=== PATIENT | female | born 1930 | race Caucasian/White ===

== ENCOUNTER → 2016-05-12 | Outpatient (CLI) | payer OTHER, MEDICARE ==
[~2016-05-12] VITALS: Ht 147.3 cm; Wt 60.5 kg
[~2016-05-12] MED LIST: ACIDOPHILUS1 EAC3 PO; ACYCLOVIR 400400 M1 PO; AMITRIPTYLINE H25 M2 PO; ARICEPT10 M1 PO; CALCIUM 600 +1 EAC1 PO; CARVEDILOL12.5 MG PO; CENTRUM SILVER1 EAC4 PO; CO Q-1010 MG PO; COMPAZINE5 MG PO; CYMBALTA20 MG PO; CYTARABINE IV; GLIPIZIDE 10 MG10 MG PO; GLIPIZIDE ER5 MG PO; GLUCOTROL5 MG PO; HYDROCODON-ACE1 EAC8 PO; HYDROCODONE-APA1 TA1 PO; JAKAFI15 MG PO; JAKAFI5 MG PO; LASIX 20 MG TAB20 MG PO; LEVAQUIN 500 M500 M1 PO; LEVSIN-SL0.125 MG SL; LIDODERM 5%1 PATCH TD; LIDODERM 5%1 PATCH TOP; LIPITOR10 MG PO; LISINOPRIL10 MG PO; LISINOPRIL2.5 MG PO; LISINOPRIL5 MG PO; LORTAB 10-3251 EACH PO; LYRICA 75 MG CA75 MG PO; MAGOX 400400 MG PO; MIRALAX17 GM PO; MIRALAX255 GM PO; MOBIC7.5 MG PO; MULTIVITAMINS PO; NORCO 10-325 T1 EACH PO; NORCO 5-325 TA1 EACH PO; NORVASC10 MG PO; OMEGA-3 FISH O1 EAC3; OMEGA-3 FISH O1 EAC5 PO; ONDANSETRON HCL4 M2 PO; PERCOCET 5-3251 EACH PO; PERCOCET PO; PERIDEX 0.12%473 M1 SP; PREDNISONE 20 M20 M1 PO; TIMOLOL GL0.5 %/5 M1 OPHTHALMIC; TIZANIDINE HCL 22 M1 PO; TURMERIC500 MG PO; VIDAZA100 MG IJ; VITAMIN D-32000 UNIT PO; VITAMIN D1000 UNI1 PO; ZINC LOZENGE25 MG PO; ZINC50 M1 PO; [UNRECOGNIZED DRUG - CODE] SC; [UNRECOGNIZED DRUG - OTHER]
--- NOTE | ~2016-05-12 | HPC ---
[address] [address] PAIN MANAGEMENT CONSULTATION Name: ONELIA BOWSER Room #: REG [facility]..#: [id number] Admission: 05/12/16 Attend Phys: Abdiel Gasca DO Discharge: Date of : 04/01/28 Report #: [id number] THIS REPORT FOR: //name// CC: Tawanda Gasca The patient is an 86-year-old female previously seen in pain clinic 04/14/2016, given a left L3-L4 transforaminal epidural injection at that time. She returns to pain clinic today noting that the injection, approximately 30 days ago, afforded very good incremental relief of pain, it is beginning to recur. She specifically notes 100% relief for about 3 weeks and then gradual return with pain, currently rated at 4 on a 0-10 visual analog scale, intermittent, aching, stabbing, and exacerbated with walking and standing. Pain started to interfere with function. She has been taking hydrocodone 10/ from Dr. Sykes. She notes with recurrence of pain, she started to use medication a little more aggressively. PHYSICAL EXAMINATION: Shows an 86-year-old female, BMI is 27.9 kilograms per meter squared. Vital signs stable as noted in the EMR. Rises from chair using armrest, moderately antalgic gait, positive straight leg raise on the right with ongoing lumbar and radicular symptoms. ASSESSMENT: Symptomatic lumbar radiculopathy, sacroiliac joint dysfunction, lumbar radiculopathy secondary to spinal stenosis. RECOMMENDATIONS: 1. Repeat left L3-L4 transforaminal epidural injection today. 2. Follow simply as needed. If patient continues to have some loss of efficacy with the hydrocodone 10/325, may consider rotation to Percocet 7.5/325; however, we will defer to Dr. Sykes, her current treating physician. ASSESSMENT: Symptomatic lumbar radiculopathy secondary to spinal stenosis. PROCEDURE NOTE: Left L3-L4 transforaminal epidural injection under fluoroscopy. PROCEDURE: Lumbar epidural steroid injection. DESCRIPTION OF PROCEDURE: After both written and informed consent to include risk of spinal cord damage, increased pain, weakness and dural puncture, the patient was taken to the fluoroscopy suite, placed in the prone position. After sterile prep and drape, a skin wheal with lidocaine was raised. A 22-gauge epidural Tuohy needle was inserted in the midline at L3-L4 with good loss to resistance. Negative aspiration for cerebrospinal fluid or blood was noted. Then 1 mL of Omnipaque under biplanar fluoroscopy showed good spread within the epidural space. This was followed with 80 mg of triamcinolone plus 1 mL of 1.5% preservative-free Xylocaine, 0.5 mL Xylocaine was then injected to flush the [address] [address] PAIN MANAGEMENT CONSULTATION Name: ONELIA BOWSER Room #: REG [facility]#: [id number] Admission: 05/12/16 Attend Phys: Abdiel Gasca DO Discharge: Date of : 04/01/28 Report #: [id number] needle; it was removed. The patient was monitored for an appropriate period of time and discharged in good and stable condition. <ELECTRONICALLY SIGNED> By: Abdiel Gasca DO 05/18/16 1031 [id number] 1827 Abdiel Gasca DO /nt
[2016-05-12 11:07] VITALS: BP 141/54
== END | disposition home or self-care (01) ==
LOC: PAIN 07:11 → EDBD 07:11 → PAIN 08:56
DX: M48.06 Spinal stenosis, lumbar region (principal); M53.3 Sacrococcygeal disorders, not elsewhere classified

== ENCOUNTER → 2016-06-03 | Outpatient (CLI) | payer OTHER, MEDICARE ==
[~2016-06-03] VITALS: Ht 147.3 cm; Wt 58.5 kg
--- NOTE | ~2016-06-03 | P ---
[facility] [address] PROCEDURE REPORT Name: ONELIA BOWSER [id number] Admission: 06/03/16 Attend Phys: Tan Ibarra Discharge: Date of : 04/01/28 Report #: [id number] THIS REPORT FOR: //name// CC: Tan Maya MD DATE OF SERVICE: 06/03/2016 PROCEDURE PERFORMED: Upper endoscopy with esophageal dilation. HISTORY OF PRESENT ILLNESS: The patient is an 86-year-old female with dysphagia for several months. She describes it to both liquids and solids. No previous history of upper endoscopy or dilation. She denies any significant heartburn. Her weight has been stable. She does have a history of leukemia and thrombocytopenia. Plan is for EGD with dilation. DESCRIPTION OF PROCEDURE: The risks and benefits of the procedure were explained to the patient, those risks including but not limited to bleeding, perforation and the risk of sedation. She understood these risks and gave informed consent. Sedation was given using propofol per anesthesia. Next, using a standard Yasound upper endoscope, the scope was placed in the patient's mouth and advanced under direct vision through the esophagus, stomach and into the second portion of the duodenum. The larynx was normal in appearance. The esophagus was normal throughout. No stricture or narrowing was noted. The GE junction was normal. No evidence of esophagitis. Overall, the gastric mucosa was normal. The pylorus was normal and patent. The duodenal bulb, first and second portion, were all normal. The scope was then brought back up into the patient's stomach and a Savary guidewire was inserted, leaving the guidewire in place as the scope was then withdrawn. Next, a 51-Turkish Savary dilation of the esophagus was then performed without difficulty. The wire and dilator removed. The scope was reintroduced into the patient's stomach. There was no evidence of mucosal tear after dilation. The scope was then withdrawn and the procedure terminated. The patient tolerated the procedure well. IMPRESSION: 1. Normal upper endoscopy. 2. Status post esophageal dilation. RECOMMENDATIONS: Observe the patient post-procedure. If the patient has continued dysphagia in the future, would then consider a video swallow evaluation by speech pathology. [address] [address] PROCEDURE REPORT Name: ONELIA BOWSER Room #: REG [facility]#: [id number] Admission: 06/03/16 Attend Phys: Tan Ibarra Discharge: Date of : 04/01/28 Report #: [id number] Thank you for allowing me to participate in her care. <ELECTRONICALLY SIGNED> By: Tan Frank MD 06/08/16 0757 [id number] Tan Frank MD /nt
== END | disposition home or self-care (01) ==
LOC: GI 06:59 → EDBD 06:59 → GI 10:36
DX: R13.10 Dysphagia, unspecified (principal); I10 Essential (primary) hypertension; E11.9 Type 2 diabetes mellitus without complications; F32.9 Major depressive disorder, single episode, unspecified; E78.00 Pure hypercholesterolemia, unspecified; D64.9 Anemia, unspecified; K21.9 Gastro-esophageal reflux disease without esophagitis; M19.90 Unspecified osteoarthritis, unspecified site; H40.9 Unspecified glaucoma; Z85.6 Personal history of leukemia; Z96.652 Presence of left artificial knee joint; Z98.42 Cataract extraction status, left eye; Z98.41 Cataract extraction status, right eye; Z96.1 Presence of intraocular lens; Z90.49 Acquired absence of other specified parts of digestive tract
CPT/HCPCS: 62110

== ENCOUNTER → 2016-08-05 | Outpatient (CLI) | payer OTHER, MEDICARE ==
[~2016-08-05] VITALS: Ht 147.3 cm; Wt 58.5 kg
--- NOTE | ~2016-08-05 | HPC ---
[facility] [address] [address] PAIN MANAGEMENT CONSULTATION Name: ONELIA BOWSER Room #: REG [facility].#: [id number] Admission: 08/05/16 Attend Phys: Abdiel Gasca DO Discharge: Date of : 04/01/28 Report #: [id number] THIS REPORT FOR: //name// CC: Eduarda Gasca DATE OF SERVICE: 08/05/2016 The patient is a very pleasant 86-year-old female I have been caring for since 2010, somewhat lost to follow up. I resumed care in 02/2015 and seen her intermittently since. She has some ongoing back and lumbar radicular pain. She had a series of lumbar epidural injections, midline injection 03/22/2016, left transforaminal epidural injection 04/14/2016 and left transforaminal epidural injection 05/12/2016. The patient notes that the injections afforded very good relief of radicular pain, though gradually, pain has recurred. It is a little different, it is specifically in the low back, does not radiate into her legs, is a little worse left than right. 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 Had been receiving chemotherapy and frequent transfusions. She has elected to go on hospice care. She is not getting any further transfusions. Last blood and platelet transfusion was at the beginning of July. Her last platelet count 10 days subsequently was 45,000. She likely has about 4 weeks left to live per her oncologist. PHYSICAL EXAMINATION: Shows an 86-year-old female, BMI is 27 kilograms per meter squared, although she is quite pleasant. Does complain of significant pain in the low back that interferes with any and all function. Blood pressure 127/49, pulse 69, respirations 16. Rises from the chair with assistance, has pain with ambulation, very tender over the SI joints with grossly positive Phoebe test bilaterally. ASSESSMENT: Symptomatic sacroiliac joint dysfunction, lumbosacral spondylosis, history of lumbar radiculopathy in a patient with acute myeloid leukemia, currently on hospice care. RECOMMENDATIONS: I have discussion with the patient and daughter and son-in-law. We elected to proceed with bilateral SI joint injections under fluoroscopy to help mitigate current pain issues. While this is a little early considering she has had 3 steroid injections since April, I am obviously much less concerned with accumulation effects of steroids. With compassionate regard, we have elected to perform the bilateral SI joint injections today. No followup appointment is scheduled. ASSESSMENT: Bilateral sacroiliac joint dysfunction and lumbosacral spondylosis. [address] [address] PAIN MANAGEMENT CONSULTATION Name: ONELIA BOWSER Room #: REG [facility]#: [id number] Admission: 08/05/16 Attend Phys: Abdiel Gasca DO Discharge: Date of : 04/01/28 Report #: [id number] PROCEDURE: Bilateral SI joint injection under fluoroscopy. PROCEDURE NOTE: After written and informed consent was obtained including risk of infection, nerve trauma, increased pain and weakness, the patient wishes to proceed. The patient was taken to the fluoroscopy suite, placed in the prone position. The sacroiliac joint was visualized using the C-arm, turned in an oblique fashion to align the joint. The skin overlying the area was cleansed with ChloraPrep. Skin wheal with Xylocaine was raised. A 22 gauge spinal needle was inserted into the inferior aspect of the joint. A low volume extension tubing was then attached to the needle after the stylet was removed. Negative aspiration was accomplished. A 1 mL of Omnipaque was injected which showed spread within the SI joint. 40 mg triamcinolone plus 2 mL of 0.5% preservative-free bupivacaine was injected into the joint. Needle was removed. Attention was then turned to the contralateral joint which was treated in an identical fashion. After both needles were removed the prep was washed off. Two Band-Aids were applied over the puncture sites. The patient was allowed to ambulate to the recovery room, monitored for an appropriate period of time, discharged in good and stable condition. By: [id number] Abdiel Gasca DO /betty
[2016-08-05 13:04] VITALS: BP 127/49
== END ==
LOC: PAIN 08-04 07:06
DX: M53.3 Sacrococcygeal disorders, not elsewhere classified (principal); M47.897 Other spondylosis, lumbosacral region